=== PATIENT | male | born 1950 | race Caucasian/White ===

== ENCOUNTER 2020-07-18 19:07 | Emergency (ER) | payer OTHER, MEDICARE ==
[~2020-07-18] VITALS: Ht 175.3 cm; Wt 83.9 kg
[~2020-07-18 19:07] MED LIST: ADDERALL XR 2020 MG PO; ASPIRIN EC325 M1 PO; FLONASE 0.05%50 MCG NASAL; LIPITOR; TRAMADOL 50 MG50 MG PO; UNKNOWN BP MED; ZOCOR 10 MG TAB10 MG
[2020-07-18] MEDS ORDERED: METOPROLOL SUC100 MG PO (21:18)
[2020-07-18] MEDS ORDERED: SINGULAIR 10 MG10 MG PO (21:21)
[2020-07-18 23:28] LABS: ABSOLUTE NEUTROPHILS 2.4 thou/uL (1.4-8.2); BASOPHILS 0.8 % (0.0-2.0); EOSINOPHILS 2.1 % (0.0-3.0); HEMATOCRIT 40.2 % (42.0-52.0); HEMOGLOBIN 13.6 gm/dL (14.0-18.0); LYMPHOCYTES 22.1 % (24.0-44.0); MCH 30.9 pg (26.0-34.0); MCHC 33.8 g/dL (28.0-37.0); MCV 91.4 fL (80.0-100.0); MONOCYTES 14.9 % (1.0-8.0); PLATELET COUNT 195 thou/uL (150-400); POLYS 60.1 % (36.0-66.0); RDW 15.6 % (10.5-14.5); WBC 3.9 thou/uL (4.0-11.0)
[2020-07-18 23:36] LABS: ANION GAP 8 mmol/L (7-16); BUN 14 mg/dL (7-18); CHLORIDE 102 mmol/L (98-107); CO2 29 mmol/L (21-32); GLUCOSE 113 mg/dL (74-106); POTASSIUM 3.9 mmol/L (3.5-5.1); SODIUM 139 mmol/L (136-145)
[2020-07-18 23:46] LABS: ALBUMIN 3.9 g/dL (3.4-5.0); DIRECT BILIRUBIN 0.2 mg/dL (<0.1-0.2); MAGNESIUM 1.7 mg/dL (1.8-2.4); PHOSPHORUS 3.8 mg/dL (2.5-4.9); SGOT 38 U/L (15-37); SGPT 38 U/L (30-65); TOTAL BILIRUBIN 1.2 mg/dL (0.2-1.0); TOTAL PROTEIN 7.1 g/dL (6.4-8.2); TROPONIN-I <0.06 ng/mL (<0.06)
[2020-07-19 00:16] VITALS: BP 176/90
--- NOTE | 2020-07-19 07:17 | EKG ---
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 : 1950 Requested By: Jonathan Rasmussen Order Number: [id number] MD: Mikey Macedo Measurements Intervals [place] Rate: 60 P: DC: QRS: -24 QRSD: 98 T: -1 QT: 450 QTc: 450 Interpretive Statements Atrial flutter Left ventricular hypertrophy Baseline wander in lead(s) III Compared to ECG 12/26/2003 08:33:29 Left ventricular hypertrophy now present Sinus rhythm no longer present T-wave abnormality no longer present Electronically Signed On 07-19-2020 7:17:28 CERAMIC ENGINEER by Mikey Macedo [email or web address] <ELECTRONICALLY SIGNED> By: Mikey Macedo MD, [facility] 07/19/20 0717 [id number] 23 Mikey Macedo MD, [facility] /EPI
== END 2020-07-19 00:20 | disposition home or self-care (01) ==
LOC: ER 19:07
PROVIDERS: Emergency Medicine
DX: I10 Essential (primary) hypertension (principal); G44.209 Tension-type headache, unspecified, not intractable; E78.5 Hyperlipidemia, unspecified; Z79.82 Long term (current) use of aspirin; Z79.899 Other long term (current) drug therapy